=== PATIENT | male | born 1965 | race Caucasian/White ===

== ENCOUNTER 2024-01-25 09:40 | Emergency (ER) | payer MEDICARE ==
[2024-01-25] VITALS (13 sets, daily range): BP systolic 117–150; BP diastolic 74–90
[~2024-01-25] VITALS: Ht 177.8 cm; Wt 86.0 kg
[2024-01-25] MEDS ORDERED: VANCOMYCIN HCL 1 GM in SODIUM CHLORIDE 0.9% 250 ML IV ONE ×2 (10:40→11:25)
[2024-01-25] MEDS ORDERED: KETOROLAC TROMETHAMINE 30 MG/ML SDV IV ONE ×2 (10:40→11:25)
[2024-01-25] MEDS ORDERED: CLINDAMYCIN PHOSPHATE 50 ML IV ONE ×2 (10:40→11:25)
[2024-01-25] MEDS ORDERED: SODIUM CHLORIDE 0.9% 1,000 ML IV ONE (10:45)
[2024-01-25 11:02] LABS: BASO% 0.4 % (0-3); EOS% 0.5 % (0-8); HEMATOCRIT 36.7 % (39.0-50.0); HEMOGLOBIN 12.4 g/dl (14.0-18.0); IMMATURE GRANULOCYTES 0.2 % (0.0-5.0); LYMPH% 17.9 % (15-41); MEAN CELL VOLUME 89.1 fL CALC (80.0-100.0); MEAN CORPUSCULAR HGB 30.1 pG CALC (26.0-32.0); MEAN CORPUSCULAR HGB CONC 33.8 g/dL CAL (32.0-36.0); NEUT# 9.33 thou/uL (1.82-7.42); RED BLOOD COUNT 4.12 mill/uL (4.70-6.10); RED CELL DISTRI WIDTH 12.5 % (11.5-15.5)
[2024-01-25 11:15] LABS: CREATININE 0.7 mg/dL (0.7-1.3)
[2024-01-25] MEDS ORDERED: SODIUM CHLORIDE 0.9% 1,000 ML IV STA (11:24)
[2024-01-25] MEDS ORDERED: PROTONIX40 MG PO (13:08)
[2024-01-25] MEDS ORDERED: CLINDAMYCIN HC150 MG PO (13:08)
== END 2024-01-25 13:35 | disposition home or self-care (01) ==
LOC: ED 09:40
PROVIDERS: Emergency Medicine
DX: S50.861A Insect bite (nonvenomous) of right forearm, initial encounter (principal); L03.113 Cellulitis of right upper limb; W57.XXXA Bitten or stung by nonvenomous insect and other nonvenomous arthropods, initial encounter